=== PATIENT | female | born 1955 | race Caucasian/White ===

== ENCOUNTER 2022-08-25 15:36 | Inpatient (IN) ==
--- NOTE | 2022-08-25 18:26 | EKG ---
Test Reason : chf, anemia Blood Pressure : */* mmHG Vent. Rate : 84 BPM Atrial Rate : 84 BPM P-R Int : 176 ms QRS Dur : 96 ms QT Int : 394 ms P-R-T Axes : 5 -50 34 degrees QTc Int : 465 ms Normal sinus rhythm Left axis deviation Incomplete right bundle branch block Inferior infarct , age undetermined Abnormal ECG No previous ECGs available Confirmed by Jairo Denny ([id number]) on 08/27/2022 8:19:31 AM Referred By: Confirmed By: Jairo Denny
[2022-08-25 19:14] LABS: EOSINOPHILS # (AUTO) 0.1 x10^3/uL (0.0-0.2); LYMPHOCYTES # (AUTO) 0.6 X10^3/uL (1.3-2.9); MONOCYTES # (AUTO) 0.4 x10^3/uL (0.3-0.8); NEUTROPHILS # (AUTO) 3.4 x10^3/uL (2.2-4.8); WHITE BLOOD COUNT 4.5 X10^3/uL (3.6-10.0)
[2022-08-25 19:18] LABS: BASOPHILS # (AUTO) 0.1 X10^3/uL (0.0-0.1); BASOPHILS % (AUTO) 1.2 % (0.2-1.0); EOSINOPHILS % (AUTO) 2.3 % (0.9-2.9); LYMPHOCYTES % (AUTO) 12.6 % (21.0-51.0); MEAN CORPUSCULAR HEMOGLOBIN 23.5 pg (27.0-34.0); MEAN CORPUSCULAR HGB CONC 33.1 g/dL (33.0-35.0); MEAN CORPUSCULAR VOLUME 70.9 fL (80.0-100.0); NEUTROPHILS % (AUTO) 75.9 % (42.0-75.0); RED BLOOD COUNT 2.78 X10^6/uL (3.5-5.4); RED CELL DISTRIBUTION WIDTH 17.7 % (11.6-16.5)
[2022-08-25 19:26] LABS: HEMATOCRIT 19.7 % (36.0-47.0); HEMOGLOBIN 6.5 g/dL (12.0-16.0)
[2022-08-25 19:43] LABS: ANISOCYTOSIS SLIGHT; HYPOCHROMASIA 1+; MICROCYTOSIS SLIGHT; PLATELET MORPHOLOGY COMMENT NORMAL (NORMAL)
[2022-08-25 19:53] LABS: ALBUMIN 3.3 g/dL (3.4-5.0); CALCIUM 8.2 mg/dL (8.5-10.1); CARBON DIOXIDE 27.5 mmol/L (21-32); COR CA(FOR HYPOALB) 8.8 mg/dL (8.5-10.1); CREATININE 2.04 mg/dL (0.55-1.02); FREE T4 (FREE THYROXINE) 0.95 ng/dL (0.76-1.46); MAGNESIUM 1.8 mg/dL (2.0-2.9); TOTAL PROTEIN 6.8 g/dL (6.4-8.2); TSH (3RD GENERATION) 1.737 uIU/mL (0.358-3.74)
[2022-08-25] MEDS ORDERED: LASIX IVP ONE (19:57)
[2022-08-25] MEDS ORDERED: NS 500 ML IV 500 ML IV ONE (20:05)
[2022-08-25] MEDS ORDERED: NORCO 5/325 MG TAB PO PRN (21:03)
[2022-08-25] MEDS: RESTORIL CAP 15 MG PO PRN (23:00)
[2022-08-25] MEDS: NORCO 5/325 MG TAB PO PRN (23:00)
--- NOTE | 2022-08-26 00:43 | EKG ---
Test Reason : chf Blood Pressure : */* mmHG Vent. Rate : 82 BPM Atrial Rate : 81 BPM P-R Int : 162 ms QRS Dur : 88 ms QT Int : 404 ms P-R-T Axes : 15 -48 1 degrees QTc Int : 472 ms Undetermined rhythm Left axis deviation Inferior infarct , age undetermined Abnormal ECG Confirmed by Jairo Denny ([id number]) on 08/27/2022 8:16:51 AM Referred By: Confirmed By: Jairo Denny
[2022-08-26] MEDS ORDERED: NS 250 ML IV 250 ML IV ONE (00:52)
[2022-08-26 01:14] LABS: BILIRUBIN,URINE NEGATIVE (NEGATIVE); BLOOD/HEMOGLOBIN,URINE 5+ (NEGATIVE); GLUCOSE, URINE NEGATIVE (NEGATIVE); KETONES,URINE NEGATIVE (NEGATIVE); LEUKOCYTE ESTERASE ,URINE 3+ (NEGATIVE); NITRITES,URINE NEGATIVE (NEGATIVE); PROTEIN,URINE 3+ (NEGATIVE); UROBILINOGEN,URINE NORMAL (NORMAL)
[2022-08-26 01:31] LABS: APPEARANCE,URINE CLOUDY (CLEAR); BACTERIA,URINE TRACE /HPF (NEGATIVE); COLOR,URINE YELLOW (YELLOW); RBC,URINE TNTC /HPF (0-3); SQUAMOUS EPITHELIAL CELL,UR FEW /HPF (NEGATIVE)
--- NOTE | 2022-08-26 06:07 | EKG ---
Test Reason : chf Blood Pressure : */* mmHG Vent. Rate : 75 BPM Atrial Rate : 75 BPM P-R Int : 160 ms QRS Dur : 98 ms QT Int : 408 ms P-R-T Axes : 2 -42 25 degrees QTc Int : 455 ms Normal sinus rhythm Left axis deviation Nonspecific T wave abnormality Abnormal ECG When compared with ECG of 26-AUG-2022 00:10, (Unconfirmed) Previous ECG has undetermined rhythm, needs review Confirmed by Jairo Denny ([id number]) on 08/27/2022 8:16:41 AM Referred By: Confirmed By: Jairo Denny
[2022-08-26 06:09] LABS: BASOPHILS # (AUTO) 0.1 X10^3/uL (0.0-0.1); BASOPHILS % (AUTO) 1.4 % (0.2-1.0); EOSINOPHILS # (AUTO) 0.2 x10^3/uL (0.0-0.2); EOSINOPHILS % (AUTO) 2.4 % (0.9-2.9); HEMATOCRIT 23.3 % (36.0-47.0); HEMOGLOBIN 7.6 g/dL (12.0-16.0); LYMPHOCYTES # (AUTO) 0.7 X10^3/uL (1.3-2.9); LYMPHOCYTES % (AUTO) 9.8 % (21.0-51.0); MEAN CORPUSCULAR HEMOGLOBIN 23.7 pg (27.0-34.0); MEAN CORPUSCULAR HGB CONC 32.6 g/dL (33.0-35.0); MEAN CORPUSCULAR VOLUME 72.6 fL (80.0-100.0); MEAN PLATELET VOLUME 8.2 fL (7.4-11.0); MONOCYTES # (AUTO) 0.6 x10^3/uL (0.3-0.8); MONOCYTES % (AUTO) 7.9 % (0.0-13.0); NEUTROPHILS # (AUTO) 5.5 x10^3/uL (2.2-4.8); NEUTROPHILS % (AUTO) 78.5 % (42.0-75.0); RED CELL DISTRIBUTION WIDTH 18.6 % (11.6-16.5)
[2022-08-26 06:28] LABS: MICROCYTOSIS SLIGHT; PLATELET MORPHOLOGY COMMENT NORMAL (NORMAL)
[2022-08-26 06:29] LABS: ALBUMIN 3.1 g/dL (3.4-5.0); CALCIUM 8.4 mg/dL (8.5-10.1); CARBON DIOXIDE 29.3 mmol/L (21-32); COR CA(FOR HYPOALB) 9.1 mg/dL (8.5-10.1); CREATININE 1.92 mg/dL (0.55-1.02)
--- NOTE | 2022-08-26 08:14 | RAD ---
HISTORYCongestive heart failure, anemiaSTUDYChest PA and lateralCOMPARISONNoneFINDINGSPatient is status post median sternotomy. The heart is enlarged. No congestive heart failure is noted. No acute alveolar infiltrates or pleural effusions are identified. Bony thorax is unremarkable.IMPRESSIONCardiomegaly without congestive heart failureNo definite infiltratesElectronically signed by: PATTI COHN (Aug 26, 2022 08:12:53)
[2022-08-26] MEDS ORDERED: LASIX IVP SCH (09:00)
[2022-08-26] MEDS ORDERED: NS 100 ML IV 100 ML with VENOFER 400 MG IV NR ×2 (09:00)
[2022-08-26] MEDS ORDERED: NEURONTIN CAP 100 MG PO PRN (09:02)
--- NOTE | 2022-08-26 09:58 | DR.H&P ---
H&P - History & Physical for Day of: H&P Date: 08/25/22 - Chief Complaint Chief Complaint: weakness, sob, leg swelling - History of Present Illness History of Present Illness: PT IS [id number], DIRECT ADMIT FOR EVALUATION AND TREATMENT OF SYMPTOMATIC ANEMIA OF UNKNOWN CAUSE, INCREASED LOWER LEG SWELLING. PT HAS PMH OF STAGE 3 KIDNEY DISEASE, UNDER THE CARE OF DR CASTILLO, CAD, WITH BYPASS IN 2008 AND MULTIPLE STENT PLACEMENT UNDER THE CARE OF DR TURNER. - Past Medical History Past Medical History: Anxiety, Arthritis, CHF, Coronary Artery Disease, Diabetes, Hypertension, Renal Disease - Past Surgical History Surgical History: Angioplasty/Stents, Appendectomy, Cholecystectomy, Hysterectomy, Tonsillectomy - Family History Family Medical History: Diabetes Mellitus, [place], Hypertension - Social History Type of Tobacco Use: None Alcohol Use: None Drug Use: None - Medications Home Medications: albuterol Allergy (Severe, Verified 08/25/22 20:59) ANAPHALEXIS REACTION almond Allergy (Severe, Verified 08/25/22 21:03) ANAPHALEXIS REACTION ketorolac [From Toradol] Allergy (Severe, Verified 08/25/22 21:01) ANAPHALEXIS REACTION peanut Allergy (Severe, Verified 08/25/22 21:03) ANAPHALEXIS REACTION acetaminophen [From Darvocet-N] Allergy (Verified 08/25/22 21:00) nalbuphine [From Nubain] Allergy (Verified 08/25/22 21:02) RASH propoxyphene [From Darvocet-N] Allergy (Verified 08/25/22 21:02) RASH CONTINUE taking the following medications bumetanide 1 mg tablet 1 tab PO BID 08/25/22 [History] ergocalciferol (vitamin D2) 50 mcg (2,000 unit) capsule 2,000 mcg PO WEEKLY 08/25/22 [History] esomeprazole magnesium 40 mg capsule,delayed release 40 mg PO BID 08/25/22 [History] gabapentin 600 mg tablet 600 tab PO BID 08/25/22 [History] insulin detemir U-100 100 unit/mL subcutaneous solution (Levemir U-100 Insulin) ml subcut 08/25/22 [History] losartan 100 mg tablet 1 tab PO QDAY 08/25/22 [History] metformin 500 mg tablet 1 tab PO QDAY 08/25/22 [History] prasugrel 10 mg tablet 1 tab PO QDAY 08/25/22 [History] promethazine 25 mg tablet 1 tab PO BID PRN 08/25/22 [History] tamsulosin 0.4 mg capsule 1 cap PO QDAY 08/25/22 [History] - Review of Systems Constitutional: Weakness Eyes: No Symptoms Reported ENT: No Symptoms Reported Respiratory: Shortness of Breath Cardiovascular: Edema Gastrointestinal: Nausea Musculoskeletal: Leg Pain Skin: No Symptoms Reported Neurological: Weakness - Physical Exam Vital Signs: Temperature 98.1 F Pulse Rate [Right Brachial] 78 Respiratory Rate 20 Blood Pressure [Left Arm] 134/63 O2 Sat by Pulse Oximetry 96 Oriented: Normal Eyes: Normal Ear: Normal Nose: Normal Throat: Normal Respiratory: RLL Diminished, LLL Diminished Cardiovascular: Edema : Normal Auscultation: Bowel Sounds: Normal Palpation: Other Tenderness: Mild Skin: Decreased Turgur Musculoskeletal: Back:Lumbar Psychiatric: Anxiety Mood Description: Anxious Affect: Anxious Speech Pattern: Clear - Assessment/Plan (1) Anemia Status: Acute Plan: ADMIT, ANEMIA PANEL AND OCCULT STOOL. TYPE & SCREEN AND TRANSFUSE PRBC WITH STRICT I&OS. BP CONTROL, HODGE PLACEMENT FOR I&OS. PPI THERAPY, BS CONTROL. CXR ON ADMISSION, SUPPLEMENTAL O2 (2) CHF (congestive heart failure) Status: Acute (3) Renal disease Status: Acute (4) CAD (coronary artery disease) Status: Acute (5) Diabetes Status: Acute - Allergies Allergies/Adverse Reactions: Allergies Allergy/AdvReac Type Severity Reaction Status Date / Time albuterol Allergy Severe ANAPHALEXIS Verified 08/25/22 20:59 REACTION almond Allergy Severe ANAPHALEXIS Verified 08/25/22 21:03 REACTION ketorolac [From Toradol] Allergy Severe ANAPHALEXIS Verified 08/25/22 21:01 REACTION peanut Allergy Severe ANAPHALEXIS Verified 08/25/22 21:03 REACTION acetaminophen Allergy Verified 08/25/22 21:00 [From Darvocet-N] nalbuphine [From Nubain] Allergy RASH Verified 08/25/22 21:02 propoxyphene Allergy RASH Verified 08/25/22 21:02 [From Darvocet-N]
[2022-08-26] MEDS: PROTONIX INJ 40 MG VIAL IVP SCH ×2 (10:12→21:11)
[2022-08-26] MEDS: HEMOCYTE-PLUS PO SCH (10:13)
[2022-08-26 10:32] VITALS: BMI 35.3
[2022-08-26 10:54] LABS: ABG BASE EXCESS 4.8 mmol/L (-2.0-2.0)
[2022-08-26 10:55] LABS: ABG ALLEN TEST POS; ABG HCO3 30.4 mmol/L (22-26)
[2022-08-26] MEDS ORDERED: ZOFRAN INJ 4 MG VIAL ONE (12:21)
[2022-08-26] MEDS: ZOFRAN INJ 4 MG VIAL IVP PRN ×2 (12:45→21:08)
--- NOTE | 2022-08-26 14:21 | CT ---
CT abdomen and pelvis without contrastIndication: Abdominal distensionComparison: June 29, 2022 CT from outside facility. MR from April 22, 2022TECHNIQUEHelical images through the abdomen and pelvis without contrast. Coronal and sagittal reformats provided.FINDINGSLimited images through the lower chest shows cardiomegaly with sternotomy change and coronary calcifications. Dependent atelectasis noted, with developing pneumonia in the right lower lung not entirely excluded. Review of bone windows demonstrates bilateral rib fractures, similar to the prior. Spine and pelvis degenerative changes are noted.Abdomen: Extensive abdominal wall scarring and soft tissue stranding with anasarca and dependent fluid posteriorly noted. Correlate for postsurgical change and cardiac dysfunction.The liver is cirrhotic in configuration, with hypodense lesion in the right lobe of the liver on axial image 13 unchanged from prior axial image 17.Post cholecystectomy change noted.Left adrenal lesion is unchanged from the prior, potentially an adenoma but indeterminate on this study.Aortic calcifications noted with stent in left renal arteryPancreas shows no acute abnormality, within limits of a noncontrast study. Lack of contrast limits sensitivity. Spleen is prominent in size with prominent portal vein suggesting portal venous hypertension.Ventral fat containing hernia seen on axial image 13, just below the xiphoid, similar to the prior.No acute colonic abnormality seen. Moderate stool seen in the colon.Kidneys show mild atrophic change without hydronephrosis.Pelvis: Urinary bladder contains gas and a King catheter. The rectum is normal. Uterus is absent. No adnexal region lesions seen.Left adrenal lesionIMPRESSION1. Hepatic cirrhosis and portal venous hypertension with splenomegaly and hepatic lesion again noted. To exclude hepatocellular carcinoma, multiphasic postcontrast imaging or MR imaging will be needed.2. Cardiomegaly with dependent lung changes and body wall anasarca suggesting worsening CHF3. Extensive vascular calcifications.4. Increased dependent change in the right lower lung noted. Correlate clinically for developing pneumonia5. Bilateral rib fractures, spine and pelvis DJD and other findings as above. Thick-walled urinary bladder with gas collapsed on a King catheter. Correlate clinically for signs of cystitis.Electronically signed by: TANISHA TURNER (Aug 26, 2022 14:20:00)
--- NOTE | 2022-08-26 15:03 | CT ---
HISTORYLETHARGIC.brHIT LT TEMPLESTUDYBRAIN W/O CONCOMPARISONNoneTECHNIQUEMult iple axial images of the head without contrast. Dose reduction techniques including Automated Exposure Control (AEC) and adjustment of mA and kV were utilized.Contrast: NoneFINDINGSBRAIN PARENCHYMA: No acute hemorrhage, infarct, mass, or mass effect.Leyva-white differentiation is maintained.Scattered white matter chronic small vessel ischemic changes.VENTRICLES/EXTRA-AXIAL SPACES: Unremarkable size and configuration. No hydrocephalus or extra-axial fluid collections. Mild left soft tissue swelling adjacent to the left lateral orbital wall. Old-appearing infarct in the left occipital lobe.EXTRACRANIAL STRUCTURES:Unremarkable bones and soft tissues. Visualized paranasal sinuses and mastoids are clear.IMPRESSIONNo acute intracranial findings with atrophy and chronic small vessel ischemic change and old appearing infarct in the left occipital lobe.Electronically signed by: Bright Robert (Aug 26, 2022 15:03:07)
--- NOTE | 2022-08-26 15:28 | RAD ---
EXAM: CHEST X-RAYHISTORY: Congestive heart failure.TECHNIQUE: AP chest x-ray dated August 26 2022 at 12:41 PM.COMPARISON: CXR dated August 25, 2022.FINDINGS:The patient is status post sternotomy, presumably for CABG. There is evidence for cardiomegaly. The pulmonary vascularity and interstitial markings are diffusely prominent, consistent with mild CHF or volume overload in the appropriate clinical setting; differential diagnosis includes (but is not limited to) mild bronchitis and interstitial pneumonia in the appropriate clinical setting.There is no gross focal lung consolidation, pleural effusion, or pneumothorax seen. Status post anterior cervical spine fusion with metallic plate and screws in situ. The visualized bony structures are otherwise within normal limits.IMPRESSION:1. Findings consistent with mild CHF or volume overload in the appropriate clinical setting (with interval progression of bronchopulmonary markings compared with the previous exam); DDX includes (but is not limited to) mild bronchitis and interstitial pneumonia in the appropriate clinical setting.2. Recommend clinical correlation and appropriate follow-up CXR evaluation to ensure interval clearance as clinically warranted.3. Consider follow-up noncontrast chest CT for further characterization as clinically warranted.Electronically signed by: Ra Muñoz (Aug 26, 2022 15:27:09)
[2022-08-26] MEDS: NORCO 5/325 MG TAB PO PRN (21:07)
[2022-08-26] MEDS: COLACE CAP 100 MG PO SCH (21:07)
[2022-08-26] MEDS: RESTORIL CAP 15 MG PO PRN (23:54)
[2022-08-27 05:58] LABS: BASOPHILS # (AUTO) 0.1 X10^3/uL (0.0-0.1); EOSINOPHILS % (AUTO) 0.1 % (0.9-2.9); HEMATOCRIT 24.5 % (36.0-47.0); LYMPHOCYTES # (AUTO) 0.4 X10^3/uL (1.3-2.9); LYMPHOCYTES % (AUTO) 5.4 % (21.0-51.0); MEAN CORPUSCULAR HEMOGLOBIN 23.7 pg (27.0-34.0); MEAN CORPUSCULAR HGB CONC 32.4 g/dL (33.0-35.0); MEAN CORPUSCULAR VOLUME 72.9 fL (80.0-100.0); MEAN PLATELET VOLUME 8.5 fL (7.4-11.0); MONOCYTES # (AUTO) 0.4 x10^3/uL (0.3-0.8); MONOCYTES % (AUTO) 5.3 % (0.0-13.0); NEUTROPHILS % (AUTO) 88.2 % (42.0-75.0); RED BLOOD COUNT 3.36 X10^6/uL (3.5-5.4); RED CELL DISTRIBUTION WIDTH 18.7 % (11.6-16.5)
[2022-08-27 06:07] LABS: ALANINE AMINOTRANSFERASE 16 Units/L (12-78); ALBUMIN 3.5 g/dL (3.4-5.0); ALKALINE PHOSPHATASE 89 Units/L (46-116); ASPARTATE AMINO TRANSFERASE 25 Units/L (15-37); BLOOD UREA NITROGEN 41 mg/dL (7-18); CALCIUM 8.6 mg/dL (8.5-10.1); CARBON DIOXIDE 29.1 mmol/L (21-32); CHLORIDE 89 mmol/L (98-107); COR NA(FOR HYPERGLY) 128 mmol/L (136-145); SODIUM 126 mmol/L (136-145); TOTAL PROTEIN 7.3 g/dL (6.4-8.2); eGFR NON BLACK RACES 23 (>60)
[2022-08-27 06:26] LABS: PLATELET MORPHOLOGY COMMENT NORMAL (NORMAL)
[2022-08-27 06:27] LABS: HYPOCHROMASIA 1+
[2022-08-27 06:31] LABS: ANISOCYTOSIS SLIGHT; MICROCYTOSIS SLIGHT
[2022-08-27] MEDS: HEMOCYTE-PLUS PO SCH (08:49)
[2022-08-27] MEDS: ZOFRAN INJ 4 MG VIAL IVP PRN ×2 (08:53→20:42)
[2022-08-27] MEDS: NORCO 5/325 MG TAB PO PRN ×2 (08:53→21:32)
[2022-08-27] MEDS ORDERED: LASIX IVP SCH (09:00)
[2022-08-27] MEDS: PROTONIX INJ 40 MG VIAL IVP SCH ×2 (09:09→21:34)
[2022-08-27] MEDS: ROCEPHIN VIAL 1 GRAM 1 G in NS 100 ML IV 100 ML IV SCH (11:36)
--- NOTE | 2022-08-27 12:25 | PCM.PROG ---
Progress Note Progress Note for Day of Date of Exam: 08/27/22 Subjective Subjective: Patient seen at bedside, no acute events overnight. She is currently being treated for anemia and CHF exacerbation. She reports dyspnea on exertion. She did receive 1 units PRBCs yesterday. CTAP showed hepatic cirrhosis, MRI pending. CXR consistent with mild CHF and volume overload. Patient's leg edema has improved. Labs/imaging Hgb 8 Plt 140 K 5.9 BUN/Cr 41/2.30 Urine Cx: Gram + cocci EF 34% Plan: Will start Rocephin for UTI, follow final urine Cx. Daily weight and strict I&Os. Follow MRI-abdomen. Continue home medications. Due to worsening renal function, will hold off lasix for today. Monitor AM labs/imaging. Past Medical Family Social History Allergies: Allergies albuterol Allergy (Severe, Verified 08/25/22 20:59) ANAPHALEXIS REACTION almond Allergy (Severe, Verified 08/25/22 21:03) ANAPHALEXIS REACTION ketorolac [From Toradol] Allergy (Severe, Verified 08/25/22 21:01) ANAPHALEXIS REACTION peanut Allergy (Severe, Verified 08/25/22 21:03) ANAPHALEXIS REACTION acetaminophen [From Darvocet-N] Allergy (Verified 08/25/22 21:00) nalbuphine [From Nubain] Allergy (Verified 08/25/22 21:02) RASH propoxyphene [From Darvocet-N] Allergy (Verified 08/25/22 21:02) RASH Vital Signs and I&O's Vital Signs: Temperature 98.3 F Pulse Rate [Right Brachial] 81 Respiratory Rate 22 Blood Pressure [Left Radial 159/72 Artery] Blood Pressure [Left Arm] 164/75 O2 Sat by Pulse Oximetry 100 Intake and Output: Intake & Output 08/24/22 08/25/22 08/26/22 08/27/22 23:59 23:59 23:59 23:59 Intake Total 960 / 960 180 / 180 Output Total 3200 / 3200 650 / 650 Balance -2240 / -2240 -470 / -470 Physical Exam Oriented: Normal Eyes: Normal Ear: Normal Nose: Normal Throat: Normal Respiratory: Generalized and Rhonchi Cardiovascular: Edema (LE edema improved ) Auscultation: Bowel Sounds: Normal Tenderness: Normal Skin: Decreased Turgur Musculoskeletal: Back:Lumbar Psychiatric: Normal Mood Description: Calm Affect: Normal Speech Pattern: Appropriate Laboratory and Diagnostics Result Diagrams: 08/27/22 05:37 08/27/22 05:37 Labs: 08/26/22 00:50 Urine,Clean Catch Urine Culture - Preliminary Laboratory WBC 8.0 X10^3/uL (3.6-10.0) 08/27/22 05:37 RBC 3.36 X10^6/uL (3.5-5.4) L 08/27/22 05:37 Hgb 8.0 g/dL (12.0-16.0) L 08/27/22 05:37 Hct 24.5 % (36.0-47.0) L 08/27/22 05:37 MCV 72.9 fL (80.0-100.0) L 08/27/22 05:37 MCH 23.7 pg (27.0-34.0) L 08/27/22 05:37 MCHC 32.4 g/dL (33.0-35.0) L 08/27/22 05:37 RDW 18.7 % (11.6-16.5) H 08/27/22 05:37 Plt Count 140 X10^3/uL (150.0-450.0) L 08/27/22 05:37 Plt Count Comment Decreased (ADEQUATE) A 08/27/22 05:37 MPV 8.5 fL (7.4-11.0) 08/27/22 05:37 Neut % (Auto) 88.2 % (42.0-75.0) H 08/27/22 05:37 Lymph % (Auto) 5.4 % (21.0-51.0) L 08/27/22 05:37 [place] % (Auto) 5.3 % (0.0-13.0) 08/27/22 05:37 Eos % (Auto) 0.1 % (0.9-2.9) L 08/27/22 05:37 Baso % (Auto) 1.0 % (0.2-1.0) 08/27/22 05:37 Neut # (Auto) 7.0 x10^3/uL (2.2-4.8) H 08/27/22 05:37 Lymph # (Auto) 0.4 X10^3/uL (1.3-2.9) L 08/27/22 05:37 [place] # (Auto) 0.4 x10^3/uL (0.3-0.8) 08/27/22 05:37 Eos # (Auto) 0.0 x10^3/uL (0.0-0.2) 08/27/22 05:37 Baso # (Auto) 0.1 X10^3/uL (0.0-0.1) 08/27/22 05:37 Absolute Nucleated RBC 0.0 /100WBC 08/27/22 05:37 Plt Morphology Comment Normal (NORMAL) 08/27/22 05:37 RBC Morphology Abnormal (NORMAL) A 08/27/22 05:37 Hypochromasia 1+ A 08/27/22 05:37 Anisocytosis Slight A 08/27/22 05:37 Microcytosis Slight A 08/27/22 05:37 Sample Site Lra 08/26/22 10:52 ABG pH 7.410 (7.35-7.45) 08/26/22 10:52 ABG pCO2 48.0 mmHg (35.0-45.0) H 08/26/22 10:52 ABG pO2 125.0 mmHg (80.0-100.0) H 08/26/22 10:52 ABG HCO3 30.4 mmol/L (22-26) H* 08/26/22 10:52 ABG O2 Saturation 99.0 % (90-100) 08/26/22 10:52 ABG Base Excess 4.8 mmol/L (-2.0-2.0) H 08/26/22 10:52 Ayo Test Pos 08/26/22 10:52 A-a Gradient -35.0 mmHg 08/26/22 10:52 FiO2 21.0 08/26/22 10:52 Blood Gas Comments Pt virgie well eb 08/26/22 10:52 Sodium 126 mmol/L (136-145) L 08/27/22 05:37 Corrected Sodium 128 mmol/L (136-145) L 08/27/22 05:37 Potassium 5.9 mmol/L (3.5-5.1) H 08/27/22 05:37 Chloride 89 mmol/L (98-107) L 08/27/22 05:37 Carbon Dioxide 29.1 mmol/L (21-32) 08/27/22 05:37 BUN 41 mg/dL (7-18) H 08/27/22 05:37 Creatinine 2.30 mg/dL (0.55-1.02) H 08/27/22 05:37 Est GFR (MDRD) Af Amer 27 (>60) L 08/27/22 05:37 Est GFR (MDRD) Non-Af 23 (>60) L 08/27/22 05:37 Glucose 203 mg/dL (65-99) H 08/27/22 05:37 POC Glucose (mg/dL) 197 mg/dL (65-99) H 08/26/22 20:21 Calcium 8.6 mg/dL (8.5-10.1) 08/27/22 05:37 Corrected Calcium TNP 08/27/22 05:37 Magnesium 1.8 mg/dL (2.0-2.9) L 08/25/22 19:08 Iron 16 ug/dL (50-175) L 08/25/22 19:08 Ferritin 49 ng/mL (8-252) 08/25/22 19:08 Total Bilirubin 0.50 mg/dL (0.2-1.0) 08/27/22 05:37 AST 25 Units/L (15-37) 08/27/22 05:37 ALT 16 Units/L (12-78) 08/27/22 05:37 Alkaline Phosphatase 89 Units/L (46-116) 08/27/22 05:37 Creatine Kinase 177 Units/L (26-192) 08/25/22 19:08 Troponin I High Sens 26.8 ng/L (4.0-60.0) 08/26/22 06:04 B-Natriuretic Peptide 697 pg/mL (0-79) H* 08/25/22 19:08 Total Protein 7.3 g/dL (6.4-8.2) 08/27/22 05:37 Albumin 3.5 g/dL (3.4-5.0) 08/27/22 05:37 Globulin 3.8 g/dL (2.5-4.5) 08/27/22 05:37 Albumin/Globulin Ratio 0.9 Ratio (1.1-2.1) L 08/27/22 05:37 Vitamin B12 472 pg/mL (193-986) 08/25/22 19:08 Folate 13.5 ng/mL (>8.6) 08/25/22 19:08 Free T4 0.95 ng/dL (0.76-1.46) 08/25/22 19:08 TSH 3rd Generation 1.737 uIU/mL (0.358-3.74) 08/25/22 19:08 Specimen Type Catherized urine 08/26/22 00:50 Urine Color Yellow (YELLOW) 08/26/22 00:50 Urine Appearance Cloudy (CLEAR) 08/26/22 00:50 Urine pH 6.0 (5.0 - 8.0) 08/26/22 00:50 Ur Specific [place] 1.015 (1.000-1.030) 08/26/22 00:50 Urine Protein 3+ (NEGATIVE) 08/26/22 00:50 Urine Glucose (UA) Negative (NEGATIVE) 08/26/22 00:50 Urine Ketones Negative (NEGATIVE) 08/26/22 00:50 Urine Blood 5+ (NEGATIVE) 08/26/22 00:50 Urine Nitrite Negative (NEGATIVE) 08/26/22 00:50 Urine Bilirubin Negative (NEGATIVE) 08/26/22 00:50 Urine Urobilinogen Normal (NORMAL) 08/26/22 00:50 Ur Leukocyte Esterase 3+ (NEGATIVE) 08/26/22 00:50 Urine RBC Tntc /HPF (0-3) A 08/26/22 00:50 Urine WBC 5-10 /HPF (0-5) A 08/26/22 00:50 Ur Squamous Epith Cells Few /HPF (NEGATIVE) 08/26/22 00:50 Urine Bacteria Trace /HPF (NEGATIVE) 08/26/22 00:50 Ur Culture Indicated? Yes/culture set up 08/26/22 00:50 Blood Type AB POSITIVE 08/25/22 20:40 Antibody Screen Negative 08/25/22 20:40 Crossmatch See Detail 08/25/22 20:40 Plan (1) Anemia: Status: Acute (2) CHF exacerbation: Status: Acute (3) UTI (urinary tract infection): Status: Acute (4) Cirrhosis: Status: Acute (5) Cardiomyopathy: Status: Acute (6) Renal disease: Status: Acute (7) CAD (coronary artery disease): Status: Acute (8) Diabetes: Status: Acute
[2022-08-27] MEDS: COLACE CAP 100 MG PO SCH (21:31)
[2022-08-27] MEDS: RESTORIL CAP 15 MG PO PRN (21:32)
[2022-08-28 05:52] LABS: BASOPHILS # (AUTO) 0.1 X10^3/uL (0.0-0.1); BASOPHILS % (AUTO) 1.2 % (0.2-1.0); EOSINOPHILS # (AUTO) 0.1 x10^3/uL (0.0-0.2); EOSINOPHILS % (AUTO) 1.6 % (0.9-2.9); HEMATOCRIT 22.7 % (36.0-47.0); HEMOGLOBIN 7.4 g/dL (12.0-16.0); LYMPHOCYTES # (AUTO) 0.6 X10^3/uL (1.3-2.9); LYMPHOCYTES % (AUTO) 9.7 % (21.0-51.0); MEAN CORPUSCULAR HEMOGLOBIN 23.8 pg (27.0-34.0); MEAN CORPUSCULAR HGB CONC 32.8 g/dL (33.0-35.0); MEAN CORPUSCULAR VOLUME 72.6 fL (80.0-100.0); MEAN PLATELET VOLUME 8.5 fL (7.4-11.0); MONOCYTES # (AUTO) 0.5 x10^3/uL (0.3-0.8); MONOCYTES % (AUTO) 8.4 % (0.0-13.0); NEUTROPHILS # (AUTO) 4.8 x10^3/uL (2.2-4.8); NEUTROPHILS % (AUTO) 79.1 % (42.0-75.0); RED BLOOD COUNT 3.12 X10^6/uL (3.5-5.4); RED CELL DISTRIBUTION WIDTH 18.7 % (11.6-16.5); WHITE BLOOD COUNT 6.1 X10^3/uL (3.6-10.0)
[2022-08-28 06:04] LABS: ALBUMIN 3.2 g/dL (3.4-5.0); CALCIUM 8.6 mg/dL (8.5-10.1); CARBON DIOXIDE 29.1 mmol/L (21-32); COR CA(FOR HYPOALB) 9.2 mg/dL (8.5-10.1); CREATININE 2.31 mg/dL (0.55-1.02); TOTAL PROTEIN 7.2 g/dL (6.4-8.2)
[2022-08-28 06:46] LABS: PLATELET MORPHOLOGY COMMENT NORMAL (NORMAL)
[2022-08-28 06:47] LABS: ANISOCYTOSIS SLIGHT; HYPOCHROMASIA 1+; MICROCYTOSIS SLIGHT
[2022-08-28] MEDS: ROCEPHIN VIAL 1 GRAM 1 G in NS 100 ML IV 100 ML IV SCH (09:12)
[2022-08-28] MEDS: HEMOCYTE-PLUS PO SCH (09:13)
[2022-08-28] MEDS: PROTONIX INJ 40 MG VIAL IVP SCH ×2 (09:13→21:25)
[2022-08-28] MEDS ORDERED: NovoLIN R (or HumuLIN R) SC PRN (10:18)
[2022-08-28] MEDS ORDERED: PATIENT'S HOME MEDICATION (Prasugrel 10 mg tablet) PO SCH (10:30)
[2022-08-28] MEDS ORDERED: LASIX IVP SCH (11:00)
[2022-08-28] MEDS ORDERED: MIRALAX POWDER (1 DOSE 17 G) PO SCH (11:50)
[2022-08-28] MEDS ORDERED: NS 500 ML IV 500 ML IV ONE (11:51)
--- NOTE | 2022-08-28 11:53 | PCM.PROG ---
Progress Note Progress Note for Day of Date of Exam: 08/28/22 Subjective Subjective: Patient seen at bedside, no acute events overnight. She is currently being treated for anemia and CHF exacerbation. She reports dyspnea on exertion. CTAP showed hepatic cirrhosis, MRI pending. CXR consistent with mild CHF and volume overload. Patient's leg edema has improved. Labs/imaging Hgb 7.4 Plt 126 K 5.4 BUN/Cr 44/2.31 Urine Cx: Enterococcus Faecalis EF 34% Plan: DC Rocephin, switch to Ampicillin. Daily weight and strict I&Os. Follow MRI-abdomen. Resume home medications. 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 Transfuse 1 unit PRBC. Monitor Hgb. Decrease lasix to 20 mg IV daily. Monitor AM labs/imaging. Past Medical Family Social History Allergies: Allergies albuterol Allergy (Severe, Verified 08/25/22 20:59) ANAPHALEXIS REACTION almond Allergy (Severe, Verified 08/25/22 21:03) ANAPHALEXIS REACTION ketorolac [From Toradol] Allergy (Severe, Verified 08/25/22 21:01) ANAPHALEXIS REACTION peanut Allergy (Severe, Verified 08/25/22 21:03) ANAPHALEXIS REACTION acetaminophen [From Darvocet-N] Allergy (Verified 08/25/22 21:00) nalbuphine [From Nubain] Allergy (Verified 08/25/22 21:02) RASH propoxyphene [From Darvocet-N] Allergy (Verified 08/25/22 21:02) RASH Vital Signs and I&O's Vital Signs: Temperature 97.9 F Pulse Rate [Right Brachial] 76 Respiratory Rate 20 Blood Pressure [Left Radial 166/77 Artery] Blood Pressure [Left Arm] 164/75 O2 Sat by Pulse Oximetry 99 Intake and Output: Intake & Output 08/25/22 08/26/22 08/27/22 08/28/22 23:59 23:59 23:59 23:59 Intake Total 960 / 960 940 / 940 200 / 200 Output Total 3200 / 3200 950 / 950 Balance -2240 / -2240 -10 / -10 200 / 200 Physical Exam Oriented: Normal Eyes: Normal Ear: Normal Nose: Normal Throat: Normal Respiratory: Generalized and Rhonchi Cardiovascular: Edema (LE edema improved ) Auscultation: Bowel Sounds: Normal Tenderness: Normal Skin: Decreased Turgur Musculoskeletal: Back:Lumbar Psychiatric: Normal Mood Description: Calm Affect: Normal Speech Pattern: Clear and Appropriate Laboratory and Diagnostics Result Diagrams: 08/28/22 05:21 08/28/22 05:21 Labs: 08/26/22 00:50 Urine,Clean Catch Urine Culture - Final Enterococcus Faecalis Laboratory WBC 6.1 X10^3/uL (3.6-10.0) 08/28/22 05:21 RBC 3.12 X10^6/uL (3.5-5.4) L 08/28/22 05:21 Hgb 7.4 g/dL (12.0-16.0) L 08/28/22 05:21 Hct 22.7 % (36.0-47.0) L 08/28/22 05:21 MCV 72.6 fL (80.0-100.0) L 08/28/22 05:21 MCH 23.8 pg (27.0-34.0) L 08/28/22 05:21 MCHC 32.8 g/dL (33.0-35.0) L 08/28/22 05:21 RDW 18.7 % (11.6-16.5) H 08/28/22 05:21 Plt Count 126 X10^3/uL (150.0-450.0) L 08/28/22 05:21 Plt Count Comment Decreased (ADEQUATE) A 08/28/22 05:21 MPV 8.5 fL (7.4-11.0) 08/28/22 05:21 Neut % (Auto) 79.1 % (42.0-75.0) H 08/28/22 05:21 Lymph % (Auto) 9.7 % (21.0-51.0) L 08/28/22 05:21 [place] % (Auto) 8.4 % (0.0-13.0) 08/28/22 05:21 Eos % (Auto) 1.6 % (0.9-2.9) 08/28/22 05:21 Baso % (Auto) 1.2 % (0.2-1.0) H 08/28/22 05:21 Neut # (Auto) 4.8 x10^3/uL (2.2-4.8) 08/28/22 05:21 Lymph # (Auto) 0.6 X10^3/uL (1.3-2.9) L 08/28/22 05:21 [place] # (Auto) 0.5 x10^3/uL (0.3-0.8) 08/28/22 05:21 Eos # (Auto) 0.1 x10^3/uL (0.0-0.2) 08/28/22 05:21 Baso # (Auto) 0.1 X10^3/uL (0.0-0.1) 08/28/22 05:21 Absolute Nucleated RBC 0.0 /100WBC 08/28/22 05:21 Plt Morphology Comment Normal (NORMAL) 08/28/22 05:21 RBC Morphology Abnormal (NORMAL) A 08/28/22 05:21 Hypochromasia 1+ A 08/28/22 05:21 Anisocytosis Slight A 08/28/22 05:21 Microcytosis Slight A 08/28/22 05:21 Sample Site Lra 08/26/22 10:52 ABG pH 7.410 (7.35-7.45) 08/26/22 10:52 ABG pCO2 48.0 mmHg (35.0-45.0) H 08/26/22 10:52 ABG pO2 125.0 mmHg (80.0-100.0) H 08/26/22 10:52 ABG HCO3 30.4 mmol/L (22-26) H* 08/26/22 10:52 ABG O2 Saturation 99.0 % (90-100) 08/26/22 10:52 ABG Base Excess 4.8 mmol/L (-2.0-2.0) H 08/26/22 10:52 Ayo Test Pos 08/26/22 10:52 A-a Gradient -35.0 mmHg 08/26/22 10:52 FiO2 21.0 08/26/22 10:52 Blood Gas Comments Pt virgie well eb 08/26/22 10:52 Sodium 127 mmol/L (136-145) L 08/28/22 05:21 Corrected Sodium 130 mmol/L (136-145) L 08/28/22 05:21 Potassium 5.4 mmol/L (3.5-5.1) H 08/28/22 05:21 Chloride 91 mmol/L (98-107) L 08/28/22 05:21 Carbon Dioxide 29.1 mmol/L (21-32) 08/28/22 05:21 BUN 44 mg/dL (7-18) H 08/28/22 05:21 Creatinine 2.31 mg/dL (0.55-1.02) H 08/28/22 05:21 Est GFR (MDRD) Af Amer 27 (>60) L 08/28/22 05:21 Est GFR (MDRD) Non-Af 22 (>60) L 08/28/22 05:21 Glucose 205 mg/dL (65-99) H 08/28/22 05:21 POC Glucose (mg/dL) 180 mg/dL (65-99) H 08/28/22 06:06 Calcium 8.6 mg/dL (8.5-10.1) 08/28/22 05:21 Corrected Calcium 9.2 mg/dL (8.5-10.1) 08/28/22 05:21 Magnesium 2.0 mg/dL (2.0-2.9) 08/28/22 05:21 Iron 16 ug/dL (50-175) L 08/25/22 19:08 Ferritin 49 ng/mL (8-252) 08/25/22 19:08 Total Bilirubin 0.30 mg/dL (0.2-1.0) 08/28/22 05:21 AST 22 Units/L (15-37) 08/28/22 05:21 ALT 13 Units/L (12-78) 08/28/22 05:21 Alkaline Phosphatase 83 Units/L (46-116) 08/28/22 05:21 Creatine Kinase 177 Units/L (26-192) 08/25/22 19:08 Troponin I High Sens 26.8 ng/L (4.0-60.0) 08/26/22 06:04 B-Natriuretic Peptide 697 pg/mL (0-79) H* 08/25/22 19:08 Total Protein 7.2 g/dL (6.4-8.2) 08/28/22 05:21 Albumin 3.2 g/dL (3.4-5.0) L 08/28/22 05:21 Globulin 4.0 g/dL (2.5-4.5) 08/28/22 05:21 Albumin/Globulin Ratio 0.8 Ratio (1.1-2.1) L 08/28/22 05:21 Vitamin B12 472 pg/mL (193-986) 08/25/22 19:08 Folate 13.5 ng/mL (>8.6) 08/25/22 19:08 Free T4 0.95 ng/dL (0.76-1.46) 08/25/22 19:08 TSH 3rd Generation 1.737 uIU/mL (0.358-3.74) 08/25/22 19:08 Specimen Type Catherized urine 08/26/22 00:50 Urine Color Yellow (YELLOW) 08/26/22 00:50 Urine Appearance Cloudy (CLEAR) 08/26/22 00:50 Urine pH 6.0 (5.0 - 8.0) 08/26/22 00:50 Ur Specific [place] 1.015 (1.000-1.030) 08/26/22 00:50 Urine Protein 3+ (NEGATIVE) 08/26/22 00:50 Urine Glucose (UA) Negative (NEGATIVE) 08/26/22 00:50 Urine Ketones Negative (NEGATIVE) 08/26/22 00:50 Urine Blood 5+ (NEGATIVE) 08/26/22 00:50 Urine Nitrite Negative (NEGATIVE) 08/26/22 00:50 Urine Bilirubin Negative (NEGATIVE) 08/26/22 00:50 Urine Urobilinogen Normal (NORMAL) 08/26/22 00:50 Ur Leukocyte Esterase 3+ (NEGATIVE) 08/26/22 00:50 Urine RBC Tntc /HPF (0-3) A 08/26/22 00:50 Urine WBC 5-10 /HPF (0-5) A 08/26/22 00:50 Ur Squamous Epith Cells Few /HPF (NEGATIVE) 08/26/22 00:50 Urine Bacteria Trace /HPF (NEGATIVE) 08/26/22 00:50 Ur Culture Indicated? Yes/culture set up 08/26/22 00:50 Stl Occult Blood (IFOB) Negative (NEGATIVE) 08/27/22 20:50 Blood Type AB POSITIVE 08/25/22 20:40 Antibody Screen Negative 08/25/22 20:40 Crossmatch See Detail 08/25/22 20:40 Plan (1) Anemia: Status: Acute (2) CHF exacerbation: Status: Acute (3) UTI (urinary tract infection): Status: Acute (4) Cirrhosis: Status: Acute (5) Cardiomyopathy: Status: Acute (6) Renal disease: Status: Acute (7) CAD (coronary artery disease): Status: Acute (8) Diabetes: Status: Acute
--- NOTE | 2022-08-28 15:59 | DR.UPDATE ---
H&P Update H&P Reviewed: Yes Any changes to H&P?: No Patient was examined?: Yes Procedures (ALL) - Central Line Placement PCM.CLCO: written consent Time out performed: Yes Patient placed pm monitor/pulse ox: Yes MD prep: mask, gown, gloves, other Centrial line prep: chlorhexidine scrub, sterile drapes applied Local anesthsia used: lidocane 1% Ultrasound used for placement: Yes (right ij id'd via u/s and cannulation visualized) Central line lumen ininserted: triple Post procedure: sutured in place, good blood return, all ports aspirated, flushed,capped, sterile dressing applied Post procedure xray: tip oc catheter in good position (appears svc on cxr), no pneumothorax seen Patient tolerated procedure: Yes Complications: none
[2022-08-28] MEDS: NS IV SCH (16:13)
[2022-08-28] MEDS: AMPICILLIN IV SCH (16:13)
[2022-08-28] MEDS: NEURONTIN TAB 600 MG PO SCH ×2 (16:14→21:23)
[2022-08-28] MEDS: MIRALAX POWDER (1 DOSE 17 G) PO SCH (16:48)
--- NOTE | 2022-08-28 17:27 | RAD ---
EXAM: CHEST X-RAYHISTORY: Central line placement verificationTECHNIQUE: AP CXR dated August 28, 2022 at 3:48 PM..COMPARISON: CXR dated August 26, 2022.FINDINGS:There is a new right internal jugular central venous catheter with distal tip in distal SVC (adequate position). Recommend careful clinical correlation to ensure venous blood return.There is evidence for cardiomegaly. The pulmonary vascularity and interstitial markings are diffusely prominent, consistent with mild CHF or volume overload in the appropriate clinical setting; differential diagnosis includes (but is not limited to) mild bronchitis and interstitial pneumonia in the appropriate clinical setting.There is no gross focal lung consolidation, pleural effusion, or pneumothorax seen. The visualized bony structures are within normal limits.IMPRESSION:1. New right internal jugular central venous catheter with distal tip in distal SVC (adequate position). Recommend careful clinical correlation to ensure venous blood return.2. Findings consistent with mild CHF or volume overload in the appropriate clinical setting (stable); DDX includes (but is not limited to) mild bronchitis and interstitial pneumonia in the appropriate clinical setting.2. Recommend clinical correlation and appropriate follow-up CXR evaluation to ensure interval clearance as clinically warranted.Electronically signed by: Ra Muñoz (Aug 28, 2022 17:26:11)
[2022-08-28] MEDS ORDERED: LEVEMIR SC SCH (21:00)
[2022-08-28 21:17] LABS: HEMATOCRIT 24.7 % (36.0-47.0); HEMOGLOBIN 8.2 g/dL (12.0-16.0)
[2022-08-28] MEDS: COLACE CAP 100 MG PO SCH (21:23)
[2022-08-28] MEDS: RESTORIL CAP 15 MG PO PRN (21:25)
[2022-08-28] MEDS: LEVEMIR SC SCH (21:26)
[2022-08-28] MEDS: SNACK - Diabetic Appropriate PO SCH (21:46)
[2022-08-28] MEDS: NORCO 5/325 MG TAB PO PRN (22:27)
[2022-08-28] MEDS: ZOFRAN INJ 4 MG VIAL IVP PRN (22:27)
[2022-08-29] MEDS: AMPICILLIN IV SCH ×2 (00:18→12:38)
[2022-08-29] MEDS: NS IV SCH ×2 (00:18→12:38)
[2022-08-29] MEDS: ROBITUSSIN DM PO PRN ×2 (01:31→22:00)
[2022-08-29 05:01] LABS: BASOPHILS # (AUTO) 0.1 X10^3/uL (0.0-0.1); BASOPHILS % (AUTO) 1.3 % (0.2-1.0); EOSINOPHILS # (AUTO) 0.2 x10^3/uL (0.0-0.2); EOSINOPHILS % (AUTO) 3.4 % (0.9-2.9); HEMOGLOBIN 8.2 g/dL (12.0-16.0); LYMPHOCYTES # (AUTO) 0.8 X10^3/uL (1.3-2.9); LYMPHOCYTES % (AUTO) 15.1 % (21.0-51.0); MEAN CORPUSCULAR HEMOGLOBIN 24.6 pg (27.0-34.0); MEAN CORPUSCULAR HGB CONC 32.9 g/dL (33.0-35.0); MEAN CORPUSCULAR VOLUME 74.7 fL (80.0-100.0); MEAN PLATELET VOLUME 8.7 fL (7.4-11.0); MONOCYTES # (AUTO) 0.5 x10^3/uL (0.3-0.8); MONOCYTES % (AUTO) 9.5 % (0.0-13.0); NEUTROPHILS % (AUTO) 70.7 % (42.0-75.0); RED BLOOD COUNT 3.34 X10^6/uL (3.5-5.4); RED CELL DISTRIBUTION WIDTH 19.2 % (11.6-16.5); WHITE BLOOD COUNT 5.6 X10^3/uL (3.6-10.0)
[2022-08-29 05:17] LABS: ALANINE AMINOTRANSFERASE 13 Units/L (12-78); ALKALINE PHOSPHATASE 72 Units/L (46-116); ASPARTATE AMINO TRANSFERASE 24 Units/L (15-37); BLOOD UREA NITROGEN 37 mg/dL (7-18); CALCIUM 8.4 mg/dL (8.5-10.1); CARBON DIOXIDE 30.7 mmol/L (21-32); CHLORIDE 96 mmol/L (98-107); COR CA(FOR HYPOALB) 9.2 mg/dL (8.5-10.1); CREATININE 1.85 mg/dL (0.55-1.02); SODIUM 131 mmol/L (136-145); TOTAL PROTEIN 6.9 g/dL (6.4-8.2); eGFR NON BLACK RACES 29 (>60)
[2022-08-29 05:29] LABS: ANISOCYTOSIS SLIGHT; HYPOCHROMASIA SLIGHT; MICROCYTOSIS SLIGHT; PLATELET MORPHOLOGY COMMENT NORMAL (NORMAL)
[2022-08-29 09:02] LABS: ABG HCO3 35.3 mmol/L (22-26)
[2022-08-29 09:05] LABS: ABG ALLEN TEST POS
[2022-08-29] MEDS: MIRALAX POWDER (1 DOSE 17 G) PO SCH (09:14)
[2022-08-29] MEDS: ALDACTONE TAB 25 MG PO SCH (09:14)
[2022-08-29] MEDS: HEMOCYTE-PLUS PO SCH (09:14)
[2022-08-29] MEDS: LASIX IVP SCH ×2 (09:14→21:59)
[2022-08-29] MEDS: PROTONIX INJ 40 MG VIAL IVP SCH ×2 (09:15→21:58)
[2022-08-29] MEDS: PATIENT'S HOME MEDICATION (Prasugrel 10 mg tablet) PO SCH (09:15)
[2022-08-29] MEDS: CHRONULAC PO SCH (10:19)
[2022-08-29] MEDS: LEVEMIR SC SCH ×2 (11:19→22:10)
[2022-08-29 11:48] LABS: INR 1.05 (0.8-1.3)
--- NOTE | 2022-08-29 13:19 | PCM.PROG ---
Progress Note - Progress Note for Day of Date of Exam: 08/29/22 - Subjective Subjective: She is currently being treated for anemia and CHF exacerbation. She reports dyspnea on exertion. CTAP showed hepatic cirrhosis, MRI pending. CXR consistent with mild CHF and volume overload. Patient's leg edema has improved. Nursing staff reports pt has increased lethargy. Pt did awaken this morning and answered questions appropriately but was more lethargic. She had a CT head without acute findings on Monday. Ammonia level added and Dr. Mathews consulted. Urine Cx: Enterococcus Faecalis, currently on IV atbx therapy. EF 34% currently increased lasix to 20mg iv bid with continued strict I&os - Past Medical Family Social History Past Med/Fam/Surg Hx: No changes since H&P Allergies: Allergies albuterol Allergy (Severe, Verified 08/25/22 20:59) ANAPHALEXIS REACTION almond Allergy (Severe, Verified 08/25/22 21:03) ANAPHALEXIS REACTION ketorolac [From Toradol] Allergy (Severe, Verified 08/25/22 21:01) ANAPHALEXIS REACTION peanut Allergy (Severe, Verified 08/25/22 21:03) ANAPHALEXIS REACTION acetaminophen [From Darvocet-N] Allergy (Verified 08/25/22 21:00) nalbuphine [From Nubain] Allergy (Verified 08/25/22 21:02) RASH propoxyphene [From Darvocet-N] Allergy (Verified 08/25/22 21:02) RASH - Review of Systems ROS: No change since H&P - Vital Signs and I&O's Vital Signs: Temperature 98.3 F Pulse Rate [Right Brachial] 82 Respiratory Rate 18 Blood Pressure [Right Arm] 172/74 Blood Pressure [Left Radial 166/77 Artery] Blood Pressure [Left Arm] 153/77 O2 Sat by Pulse Oximetry 99 Intake and Output: Intake & Output 08/27/22 08/28/22 08/29/22 08/30/22 11:59 11:59 11:59 11:59 Intake Total 660 / 660 960 / 960 1200 / 1200 Output Total 2049 / 2049 300 / 300 1400 / 1400 Balance -1390 / -1390 660 / 660 -200 / -200 - Physical Exam Oriented: Normal Eyes: Normal Ear: Normal Nose: Normal Throat: Normal Respiratory: Generalized, Rhonchi Cardiovascular: Edema (LE edema improved) : Normal Auscultation: Bowel Sounds: Normal Tenderness: Normal Skin: Decreased Turgur Musculoskeletal: Back:Lumbar Psychiatric: Normal Mood Description: Calm Affect: Normal Speech Pattern: Clear, Appropriate - Laboratory and Diagnostics Result Diagrams: 08/29/22 04:33 08/29/22 04:33 Labs: 08/26/22 00:50 Urine,Clean Catch Urine Culture - Final Enterococcus Faecalis Laboratory WBC 5.6 X10^3/uL (3.6-10.0) 08/29/22 04:33 RBC 3.34 X10^6/uL (3.5-5.4) L 08/29/22 04:33 Hgb 8.2 g/dL (12.0-16.0) L 08/29/22 04:33 Hct 25.0 % (36.0-47.0) L 08/29/22 04:33 MCV 74.7 fL (80.0-100.0) L 08/29/22 04:33 MCH 24.6 pg (27.0-34.0) L 08/29/22 04:33 MCHC 32.9 g/dL (33.0-35.0) L 08/29/22 04:33 RDW 19.2 % (11.6-16.5) H 08/29/22 04:33 Plt Count 117 X10^3/uL (150.0-450.0) L 08/29/22 04:33 Plt Count Comment Decreased (ADEQUATE) A 08/29/22 04:33 MPV 8.7 fL (7.4-11.0) 08/29/22 04:33 Neut % (Auto) 70.7 % (42.0-75.0) 08/29/22 04:33 Lymph % (Auto) 15.1 % (21.0-51.0) L 08/29/22 04:33 [place] % (Auto) 9.5 % (0.0-13.0) 08/29/22 04:33 Eos % (Auto) 3.4 % (0.9-2.9) H 08/29/22 04:33 Baso % (Auto) 1.3 % (0.2-1.0) H 08/29/22 04:33 Neut # (Auto) 4.0 x10^3/uL (2.2-4.8) 08/29/22 04:33 Lymph # (Auto) 0.8 X10^3/uL (1.3-2.9) L 08/29/22 04:33 [place] # (Auto) 0.5 x10^3/uL (0.3-0.8) 08/29/22 04:33 Eos # (Auto) 0.2 x10^3/uL (0.0-0.2) 08/29/22 04:33 Baso # (Auto) 0.1 X10^3/uL (0.0-0.1) 08/29/22 04:33 Absolute Nucleated RBC 0.1 /100WBC 08/29/22 04:33 Plt Morphology Comment Normal (NORMAL) 08/29/22 04:33 RBC Morphology Abnormal (NORMAL) A 08/29/22 04:33 Hypochromasia Slight A 08/29/22 04:33 Anisocytosis Slight A 08/29/22 04:33 Microcytosis Slight A 08/29/22 04:33 PT 14.2 SECONDS (11.8-14.3) 08/29/22 08:30 INR Target Range - 08/29/22 08:30 INR 1.05 (0.8-1.3) 08/29/22 08:30 Sample Site Rrad 08/29/22 08:32 ABG pH 7.370 (7.35-7.45) 08/29/22 08:32 ABG pCO2 61.0 mmHg (35.0-45.0) H* 08/29/22 08:32 ABG pO2 50.0 mmHg (80.0-100.0) L 08/29/22 08:32 ABG HCO3 35.3 mmol/L (22-26) H* 08/29/22 08:32 ABG O2 Saturation 84.0 % (90-100) L* 08/29/22 08:32 ABG Base Excess 8.0 mmol/L (-2.0-2.0) H 08/29/22 08:32 Ayo Test Pos 08/29/22 08:32 A-a Gradient 23.0 mmHg 08/29/22 08:32 FiO2 21.0 08/29/22 08:32 Blood Gas Comments Pt virgie well elj 08/29/22 08:32 Sodium 131 mmol/L (136-145) L 08/29/22 04:33 Corrected Sodium TNP 08/29/22 04:33 Potassium 4.7 mmol/L (3.5-5.1) 08/29/22 04:33 Chloride 96 mmol/L (98-107) L 08/29/22 04:33 Carbon Dioxide 30.7 mmol/L (21-32) 08/29/22 04:33 BUN 37 mg/dL (7-18) H 08/29/22 04:33 Creatinine 1.85 mg/dL (0.55-1.02) H 08/29/22 04:33 Est GFR (MDRD) Af Amer 35 (>60) L 08/29/22 04:33 Est GFR (MDRD) Non-Af 29 (>60) L 08/29/22 04:33 Glucose 98 mg/dL (65-99) 08/29/22 04:33 POC Glucose (mg/dL) 77 mg/dL (65-99) 08/29/22 11:12 Calcium 8.4 mg/dL (8.5-10.1) L 08/29/22 04:33 Corrected Calcium 9.2 mg/dL (8.5-10.1) 08/29/22 04:33 Magnesium 2.0 mg/dL (2.0-2.9) 08/28/22 05:21 Iron 16 ug/dL (50-175) L 08/25/22 19:08 Ferritin 49 ng/mL (8-252) 08/25/22 19:08 Total Bilirubin 0.60 mg/dL (0.2-1.0) 08/29/22 04:33 AST 24 Units/L (15-37) 08/29/22 04:33 ALT 13 Units/L (12-78) 08/29/22 04:33 Alkaline Phosphatase 72 Units/L (46-116) 08/29/22 04:33 Ammonia 44 umol/L (11-32) H 08/29/22 08:30 Creatine Kinase 177 Units/L (26-192) 08/25/22 19:08 Troponin I High Sens 26.8 ng/L (4.0-60.0) 08/26/22 06:04 B-Natriuretic Peptide 697 pg/mL (0-79) H* 08/25/22 19:08 Total Protein 6.9 g/dL (6.4-8.2) 08/29/22 04:33 Albumin 3.0 g/dL (3.4-5.0) L 08/29/22 04:33 Globulin 3.9 g/dL (2.5-4.5) 08/29/22 04:33 Albumin/Globulin Ratio 0.8 Ratio (1.1-2.1) L 08/29/22 04:33 Vitamin B12 472 pg/mL (193-986) 08/25/22 19:08 Folate 13.5 ng/mL (>8.6) 08/25/22 19:08 Free T4 0.95 ng/dL (0.76-1.46) 08/25/22 19:08 TSH 3rd Generation 1.737 uIU/mL (0.358-3.74) 08/25/22 19:08 Specimen Type Catherized urine 08/26/22 00:50 Urine Color Yellow (YELLOW) 08/26/22 00:50 Urine Appearance Cloudy (CLEAR) 08/26/22 00:50 Urine pH 6.0 (5.0 - 8.0) 08/26/22 00:50 Ur Specific [place] 1.015 (1.000-1.030) 08/26/22 00:50 Urine Protein 3+ (NEGATIVE) 08/26/22 00:50 Urine Glucose (UA) Negative (NEGATIVE) 08/26/22 00:50 Urine Ketones Negative (NEGATIVE) 08/26/22 00:50 Urine Blood 5+ (NEGATIVE) 08/26/22 00:50 Urine Nitrite Negative (NEGATIVE) 08/26/22 00:50 Urine Bilirubin Negative (NEGATIVE) 08/26/22 00:50 Urine Urobilinogen Normal (NORMAL) 08/26/22 00:50 Ur Leukocyte Esterase 3+ (NEGATIVE) 08/26/22 00:50 Urine RBC Tntc /HPF (0-3) A 08/26/22 00:50 Urine WBC 5-10 /HPF (0-5) A 08/26/22 00:50 Ur Squamous Epith Cells Few /HPF (NEGATIVE) 08/26/22 00:50 Urine Bacteria Trace /HPF (NEGATIVE) 08/26/22 00:50 Ur Culture Indicated? Yes/culture set up 08/26/22 00:50 Stl Occult Blood (IFOB) Negative (NEGATIVE) 08/27/22 20:50 Blood Type AB POSITIVE 08/25/22 20:40 Antibody Screen Negative 08/25/22 20:40 Crossmatch See Detail 08/25/22 20:40 - Plan (1) Cirrhosis Status: Acute (2) Anemia Status: Acute Plan: ANEMIA PANEL AND OCCULT STOOL. TYPE & SCREEN AND TRANSFUSE PRBC WITH STRICT I&OS. BP CONTROL, HODGE PLACEMENT FOR I&OS. PPI THERAPY, BS CONTROL (3) CHF (congestive heart failure) Status: Acute (4) Renal disease Status: Acute (5) CAD (coronary artery disease) Status: Acute (6) Diabetes Status: Acute (7) Urinary tract infection Status: Acute
[2022-08-29] MEDS: INDERAL TAB 10 MG PO SCH ×2 (13:59→21:59)
--- NOTE | 2022-08-29 16:54 | MRI ---
ABDOMEN W/O CONClinical indication: CirrhosisProcedure: Multiplanar multi sequence MRI of the abdomen were obtained without the administration of intravenous contrast according to standard departmental protocol.Comparisons:August 26, 2022Findings: Examination markedly compromised by patient motion.Iron deposition liver and spleen. Small volume ascites . Cirrhotic morphology liver. Spleen measures 15 cm in craniocaudal dimension. There is a region T2 bright signal in the central liver on series 801, image 7 2.2 cm. Gallbladder absent. No filling defects within the common bile duct. No ductal dilatation pancreatic atrophy. Adrenal glands not well seen. Kidneys demonstrate normal cortical medullary differentiation. No hydronephrosis. No suspicious lymph nodes.Impression:1.Cirrhosis of the liver and evidence of portal hypertension. There is a region T2 abnormal signal central liver. It should be noted that hepatocellular carcinoma cannot be excluded in the absence of intravenous contrast.Electronically signed by: DORIS SILVA (Aug 29, 2022 16:54:01)
[2022-08-29] MEDS: SNACK - Diabetic Appropriate PO SCH (20:11)
[2022-08-29] MEDS: RESTORIL CAP 15 MG PO PRN (21:59)
[2022-08-29] MEDS: COLACE CAP 100 MG PO SCH (22:00)
[2022-08-29] MEDS: ZOFRAN INJ 4 MG VIAL IVP PRN (22:23)
[2022-08-30] MEDS: NS IV SCH ×2 (00:44→11:17)
[2022-08-30] MEDS: AMPICILLIN IV SCH ×2 (00:44→11:17)
[2022-08-30 06:29] LABS: AMMONIA 43 umol/L (11-32)
[2022-08-30 06:33] LABS: BASOPHILS # (AUTO) 0.1 X10^3/uL (0.0-0.1); BASOPHILS % (AUTO) 1.5 % (0.2-1.0); EOSINOPHILS # (AUTO) 0.2 x10^3/uL (0.0-0.2); EOSINOPHILS % (AUTO) 3.4 % (0.9-2.9); HEMATOCRIT 28.7 % (36.0-47.0); HEMOGLOBIN 9.2 g/dL (12.0-16.0); LYMPHOCYTES # (AUTO) 0.6 X10^3/uL (1.3-2.9); LYMPHOCYTES % (AUTO) 8.5 % (21.0-51.0); MEAN CORPUSCULAR HEMOGLOBIN 24.4 pg (27.0-34.0); MEAN CORPUSCULAR HGB CONC 32.1 g/dL (33.0-35.0); MEAN CORPUSCULAR VOLUME 76.1 fL (80.0-100.0); MONOCYTES # (AUTO) 0.5 x10^3/uL (0.3-0.8); NEUTROPHILS # (AUTO) 5.4 x10^3/uL (2.2-4.8); NEUTROPHILS % (AUTO) 78.6 % (42.0-75.0); RED BLOOD COUNT 3.77 X10^6/uL (3.5-5.4); RED CELL DISTRIBUTION WIDTH 19.5 % (11.6-16.5); WHITE BLOOD COUNT 6.9 X10^3/uL (3.6-10.0)
[2022-08-30 06:48] LABS: ALANINE AMINOTRANSFERASE 15 Units/L (12-78); ALBUMIN 3.4 g/dL (3.4-5.0); ALKALINE PHOSPHATASE 87 Units/L (46-116); ASPARTATE AMINO TRANSFERASE 31 Units/L (15-37); BLOOD UREA NITROGEN 33 mg/dL (7-18); CALCIUM 8.8 mg/dL (8.5-10.1); CARBON DIOXIDE 30.9 mmol/L (21-32); CHLORIDE 95 mmol/L (98-107); COR NA(FOR HYPERGLY) 133 mmol/L (136-145); CREATININE 1.69 mg/dL (0.55-1.02); SODIUM 131 mmol/L (136-145); TOTAL PROTEIN 7.6 g/dL (6.4-8.2); eGFR NON BLACK RACES 32 (>60)
[2022-08-30] MEDS: LASIX IVP SCH ×2 (08:43→21:04)
[2022-08-30] MEDS: MIRALAX POWDER (1 DOSE 17 G) PO SCH (08:44)
[2022-08-30] MEDS: CHRONULAC PO SCH (08:44)
[2022-08-30] MEDS: INDERAL TAB 10 MG PO SCH ×2 (08:44→21:05)
[2022-08-30] MEDS: HEMOCYTE-PLUS PO SCH (08:44)
[2022-08-30] MEDS: PROTONIX INJ 40 MG VIAL IVP SCH ×2 (08:44→21:04)
[2022-08-30] MEDS: ALDACTONE TAB 25 MG PO SCH (08:44)
[2022-08-30] MEDS: PATIENT'S HOME MEDICATION (Prasugrel 10 mg tablet) PO SCH (08:44)
[2022-08-30 10:59] LABS: INR 1.34 (0.8-1.3)
[2022-08-30] MEDS: LEVEMIR SC SCH ×2 (12:00→21:06)
[2022-08-30 12:31] LABS: IRON 42 ug/dL (50-175)
[2022-08-30] MEDS: ZOFRAN INJ 4 MG VIAL IVP PRN ×2 (15:38→21:03)
[2022-08-30] MEDS: ROBITUSSIN DM PO PRN (15:38)
--- NOTE | 2022-08-30 18:29 | PCM.PROG ---
Progress Note - Progress Note for Day of Date of Exam: 08/30/22 - Subjective Subjective: She is currently being treated for anemia and CHF exacerbation. She reports dyspnea on exertion. CTAP showed hepatic cirrhosis, MRI pending. CXR consistent with mild CHF and volume overload. Patient's leg edema has improved. Nursing staff reports pt has increased lethargy. Pt did awaken this morning and answered questions appropriately but was more lethargic. She had a CT head without acute findings on Monday. Ammonia level added and Dr. Mathews consulted. Urine Cx: Enterococcus Faecalis, currently on IV atbx therapy. EF 34% currently increased lasix to 20mg iv bid with continued strict I&os - Past Medical Family Social History Past Med/Fam/Surg Hx: No changes since H&P Allergies: Allergies albuterol Allergy (Severe, Verified 08/25/22 20:59) ANAPHALEXIS REACTION almond Allergy (Severe, Verified 08/25/22 21:03) ANAPHALEXIS REACTION ketorolac [From Toradol] Allergy (Severe, Verified 08/25/22 21:01) ANAPHALEXIS REACTION peanut Allergy (Severe, Verified 08/25/22 21:03) ANAPHALEXIS REACTION acetaminophen [From Darvocet-N] Allergy (Verified 08/25/22 21:00) nalbuphine [From Nubain] Allergy (Verified 08/25/22 21:02) RASH propoxyphene [From Darvocet-N] Allergy (Verified 08/25/22 21:02) RASH - Review of Systems ROS: No change since H&P - Vital Signs and I&O's Vital Signs: Temperature 97.8 F Pulse Rate [Right Brachial] 68 Respiratory Rate 22 Blood Pressure [Right Arm] 173/73 Blood Pressure [Left Radial 166/77 Artery] Blood Pressure [Left Arm] 139/64 O2 Sat by Pulse Oximetry 99 Intake and Output: Intake & Output 08/28/22 08/29/22 08/30/22 08/31/22 11:59 11:59 11:59 11:59 Intake Total 960 / 960 1200 / 1200 1337 / 1337 360 / 360 Output Total 300 / 300 1400 / 1400 2200 / 2200 400 / 400 Balance 660 / 660 -200 / -200 -863 / -863 -40 / -40 - Physical Exam Oriented: Normal, Time, Person Eyes: Normal Ear: Normal Nose: Normal Throat: Normal Respiratory: Generalized, Diminished, Rhonchi Cardiovascular: Normal Auscultation: Bowel Sounds: Normal Tenderness: Normal Skin: Decreased Turgur Musculoskeletal: Normal, Back:Lumbar Psychiatric: Normal Mood Description: Calm Affect: Normal Speech Pattern: Clear, Appropriate, Delayed - Laboratory and Diagnostics Result Diagrams: 08/30/22 05:30 08/30/22 05:30 Labs: 08/26/22 00:50 Urine,Clean Catch Urine Culture - Final Enterococcus Faecalis Laboratory WBC 6.9 X10^3/uL (3.6-10.0) 08/30/22 05:30 RBC 3.77 X10^6/uL (3.5-5.4) 08/30/22 05:30 Hgb 9.2 g/dL (12.0-16.0) L 08/30/22 05:30 Hct 28.7 % (36.0-47.0) L 08/30/22 05:30 MCV 76.1 fL (80.0-100.0) L 08/30/22 05:30 MCH 24.4 pg (27.0-34.0) L 08/30/22 05:30 MCHC 32.1 g/dL (33.0-35.0) L 08/30/22 05:30 RDW 19.5 % (11.6-16.5) H 08/30/22 05:30 Plt Count 103 X10^3/uL (150.0-450.0) L 08/30/22 05:30 Plt Count Comment Decreased (ADEQUATE) A 08/29/22 04:33 MPV 9.0 fL (7.4-11.0) 08/30/22 05:30 Neut % (Auto) 78.6 % (42.0-75.0) H 08/30/22 05:30 Lymph % (Auto) 8.5 % (21.0-51.0) L 08/30/22 05:30 [place] % (Auto) 8.0 % (0.0-13.0) 08/30/22 05:30 Eos % (Auto) 3.4 % (0.9-2.9) H 08/30/22 05:30 Baso % (Auto) 1.5 % (0.2-1.0) H 08/30/22 05:30 Neut # (Auto) 5.4 x10^3/uL (2.2-4.8) H 08/30/22 05:30 Lymph # (Auto) 0.6 X10^3/uL (1.3-2.9) L 08/30/22 05:30 [place] # (Auto) 0.5 x10^3/uL (0.3-0.8) 08/30/22 05:30 Eos # (Auto) 0.2 x10^3/uL (0.0-0.2) 08/30/22 05:30 Baso # (Auto) 0.1 X10^3/uL (0.0-0.1) 08/30/22 05:30 Absolute Nucleated RBC 0.1 /100WBC 08/30/22 05:30 Plt Morphology Comment Normal (NORMAL) 08/29/22 04:33 RBC Morphology Abnormal (NORMAL) A 08/29/22 04:33 Hypochromasia Slight A 08/29/22 04:33 Anisocytosis Slight A 08/29/22 04:33 Microcytosis Slight A 08/29/22 04:33 PT 14.0 SECONDS (11.8-14.3) 08/30/22 05:30 INR Target Range - 08/30/22 05:30 INR 1.34 (0.8-1.3) H 08/30/22 05:30 Sample Site Rrad 08/29/22 08:32 ABG pH 7.370 (7.35-7.45) 08/29/22 08:32 ABG pCO2 61.0 mmHg (35.0-45.0) H* 08/29/22 08:32 ABG pO2 50.0 mmHg (80.0-100.0) L 08/29/22 08:32 ABG HCO3 35.3 mmol/L (22-26) H* 08/29/22 08:32 ABG O2 Saturation 84.0 % (90-100) L* 08/29/22 08:32 ABG Base Excess 8.0 mmol/L (-2.0-2.0) H 08/29/22 08:32 Ayo Test Pos 08/29/22 08:32 A-a Gradient 23.0 mmHg 08/29/22 08:32 FiO2 21.0 08/29/22 08:32 Blood Gas Comments Pt virgie well elj 08/29/22 08:32 Sodium 131 mmol/L (136-145) L 08/30/22 05:30 Corrected Sodium 133 mmol/L (136-145) L 08/30/22 05:30 Potassium 4.9 mmol/L (3.5-5.1) 08/30/22 05:30 Chloride 95 mmol/L (98-107) L 08/30/22 05:30 Carbon Dioxide 30.9 mmol/L (21-32) 08/30/22 05:30 BUN 33 mg/dL (7-18) H 08/30/22 05:30 Creatinine 1.69 mg/dL (0.55-1.02) H 08/30/22 05:30 Est GFR (MDRD) Af Amer 39 (>60) L 08/30/22 05:30 Est GFR (MDRD) Non-Af 32 (>60) L 08/30/22 05:30 Glucose 185 mg/dL (65-99) H 08/30/22 05:30 POC Glucose (mg/dL) 278 mg/dL (65-99) H 08/30/22 16:45 Calcium 8.8 mg/dL (8.5-10.1) 08/30/22 05:30 Corrected Calcium TNP 08/30/22 05:30 Magnesium 2.0 mg/dL (2.0-2.9) 08/28/22 05:21 Iron 42 ug/dL (50-175) L 08/30/22 11:44 Transferrin 309 mg/dL (202-364) 08/30/22 11:44 Ferritin 433 ng/mL (8-252) H 08/30/22 11:44 Total Bilirubin 0.50 mg/dL (0.2-1.0) 08/30/22 05:30 AST 31 Units/L (15-37) 08/30/22 05:30 ALT 15 Units/L (12-78) 08/30/22 05:30 Alkaline Phosphatase 87 Units/L (46-116) 08/30/22 05:30 Ammonia 43 umol/L (11-32) H 08/30/22 05:30 Creatine Kinase 177 Units/L (26-192) 08/25/22 19:08 Troponin I High Sens 26.8 ng/L (4.0-60.0) 08/26/22 06:04 B-Natriuretic Peptide 697 pg/mL (0-79) H* 08/25/22 19:08 Total Protein 7.6 g/dL (6.4-8.2) 08/30/22 05:30 Albumin 3.4 g/dL (3.4-5.0) 08/30/22 05:30 Globulin 4.2 g/dL (2.5-4.5) 08/30/22 05:30 Albumin/Globulin Ratio 0.8 Ratio (1.1-2.1) L 08/30/22 05:30 Vitamin B12 472 pg/mL (193-986) 08/25/22 19:08 Folate 13.5 ng/mL (>8.6) 08/25/22 19:08 Free T4 0.95 ng/dL (0.76-1.46) 08/25/22 19:08 TSH 3rd Generation 1.737 uIU/mL (0.358-3.74) 08/25/22 19:08 Specimen Type Catherized urine 08/26/22 00:50 Urine Color Yellow (YELLOW) 08/26/22 00:50 Urine Appearance Cloudy (CLEAR) 08/26/22 00:50 Urine pH 6.0 (5.0 - 8.0) 08/26/22 00:50 Ur Specific [place] 1.015 (1.000-1.030) 08/26/22 00:50 Urine Protein 3+ (NEGATIVE) 08/26/22 00:50 Urine Glucose (UA) Negative (NEGATIVE) 08/26/22 00:50 Urine Ketones Negative (NEGATIVE) 08/26/22 00:50 Urine Blood 5+ (NEGATIVE) 08/26/22 00:50 Urine Nitrite Negative (NEGATIVE) 08/26/22 00:50 Urine Bilirubin Negative (NEGATIVE) 08/26/22 00:50 Urine Urobilinogen Normal (NORMAL) 08/26/22 00:50 Ur Leukocyte Esterase 3+ (NEGATIVE) 08/26/22 00:50 Urine RBC Tntc /HPF (0-3) A 08/26/22 00:50 Urine WBC 5-10 /HPF (0-5) A 08/26/22 00:50 Ur Squamous Epith Cells Few /HPF (NEGATIVE) 08/26/22 00:50 Urine Bacteria Trace /HPF (NEGATIVE) 08/26/22 00:50 Ur Culture Indicated? Yes/culture set up 08/26/22 00:50 Stl Occult Blood (IFOB) Negative (NEGATIVE) 08/27/22 20:50 Blood Type AB POSITIVE 08/25/22 20:40 Antibody Screen Negative 08/25/22 20:40 Crossmatch See Detail 08/25/22 20:40 - Plan (1) Cirrhosis Status: Acute Plan: LACTULOSE AND XIFAXIN. BP CONTROL, BLEEDING PRECAUTIONS. IRFAN CONSULT ORDERED, AM CBC CMP. STRICT I&OS (2) Anemia Status: Acute Plan: ANEMIA PANEL AND OCCULT STOOL. TYPE & SCREEN AND TRANSFUSE PRBC WITH STRICT I&OS. BP CONTROL, HODGE PLACEMENT FOR I&OS. PPI THERAPY, BS CONTROL (3) CHF (congestive heart failure) Status: Acute (4) Renal disease Status: Acute (5) CAD (coronary artery disease) Status: Acute (6) Diabetes Status: Acute (7) Urinary tract infection Status: Acute
[2022-08-30] MEDS: COLACE CAP 100 MG PO SCH (21:04)
[2022-08-30] MEDS: RESTORIL CAP 15 MG PO PRN (21:05)
[2022-08-30] MEDS: SNACK - Diabetic Appropriate PO SCH (21:05)
[2022-08-31] MEDS: NS IV SCH ×2 (00:39→13:25)
[2022-08-31] MEDS: AMPICILLIN IV SCH ×2 (00:39→13:25)
[2022-08-31 05:38] LABS: BASOPHILS % (AUTO) 0.4 % (0.2-1.0); EOSINOPHILS # (AUTO) 0.2 x10^3/uL (0.0-0.2); EOSINOPHILS % (AUTO) 3.4 % (0.9-2.9); HEMATOCRIT 26.9 % (36.0-47.0); HEMOGLOBIN 8.8 g/dL (12.0-16.0); LYMPHOCYTES # (AUTO) 0.7 X10^3/uL (1.3-2.9); LYMPHOCYTES % (AUTO) 11.8 % (21.0-51.0); MEAN CORPUSCULAR HEMOGLOBIN 24.9 pg (27.0-34.0); MEAN CORPUSCULAR HGB CONC 32.6 g/dL (33.0-35.0); MEAN CORPUSCULAR VOLUME 76.4 fL (80.0-100.0); MEAN PLATELET VOLUME 8.6 fL (7.4-11.0); MONOCYTES # (AUTO) 0.4 x10^3/uL (0.3-0.8); MONOCYTES % (AUTO) 7.4 % (0.0-13.0); NEUTROPHILS # (AUTO) 4.6 x10^3/uL (2.2-4.8); RED BLOOD COUNT 3.51 X10^6/uL (3.5-5.4); RED CELL DISTRIBUTION WIDTH 19.8 % (11.6-16.5); WHITE BLOOD COUNT 5.9 X10^3/uL (3.6-10.0)
[2022-08-31 05:49] LABS: ALBUMIN 3.2 g/dL (3.4-5.0); CALCIUM 8.7 mg/dL (8.5-10.1); CARBON DIOXIDE 34.6 mmol/L (21-32); COR CA(FOR HYPOALB) 9.3 mg/dL (8.5-10.1); CREATININE 1.76 mg/dL (0.55-1.02); TOTAL PROTEIN 7.3 g/dL (6.4-8.2)
[2022-08-31 06:05] LABS: HEPATITIS B SURFACE ANTIGEN Negative (Negative)
[2022-08-31] MEDS ORDERED: XIFAXAN PO SCH (09:00)
--- NOTE | 2022-08-31 09:04 | RAD ---
HISTORYCHFSTUDYCHEST, 1 [id number]/26/2023.TECHNIQUEPA or AP view of the chestFINDINGSPatient is significantly rotated. The cardiac silhouette is stably enlarged. Mediastinal contours appear stable. Status post median sternotomy. There are mild bibasilar patchy opacities. No definite pneumothorax. Soft tissue attenuation limits evaluation. Blunted right costophrenic sulcus.IMPRESSIONMild bibasilar patchy opacities may represent atelectasis or infiltrate. Blunted right costophrenic sulcus can be seen with small pleural effusion or pleuro-parynchemal scarring.Electronically signed by: Ryan Lara (Aug 31, 2022 09:03:14)
[2022-08-31] MEDS: PROTONIX INJ 40 MG VIAL IVP SCH (10:45)
[2022-08-31] MEDS: LASIX IVP SCH (10:45)
[2022-08-31] MEDS: MIRALAX POWDER (1 DOSE 17 G) PO SCH (10:46)
[2022-08-31] MEDS: HEMOCYTE-PLUS PO SCH (10:46)
[2022-08-31] MEDS: INDERAL TAB 10 MG PO SCH (10:46)
[2022-08-31] MEDS: ALDACTONE TAB 25 MG PO SCH (10:46)
[2022-08-31] MEDS: CHRONULAC PO SCH (10:47)
[2022-08-31] MEDS: LEVEMIR SC SCH (11:04)
[2022-08-31 12:53] VITALS: BP 153/70
[2022-08-31] MEDS: ZOFRAN INJ 4 MG VIAL IVP PRN (13:25)
--- NOTE | 2022-08-31 16:55 | DR.CONSULT ---
Consult - Consultation for Day of: Date: 08/30/22 (GI) - Chief Complaint Chief Complaint: Patient is a 67 y/o who is referred for liver cirrhosis. Patient has complaints of dyspepsia and constipation. Denies dysphagia, abdominal pain, N/V, diarrhea, melena, and hematochezia. Patient reports last EGD was done 6-12 months ago, in [place]. Last colonoscopy was done 1.5 years ago, also in [place]. Patient denies history of colon polyps. Denies ETOH use or any history of liver disease. Abdomen MRI shows cirrhosis of the liver and evidence of portal hypertension; there is a region T2 abnormal signal central liver, it should be noted that hepatocellular carcinoma cannot be excluded in the absence of intravenous contrast. PT IS [id number], DIRECT ADMIT FOR EVALUATION AND TREATMENT OF SYMPTOMATIC ANEMIA OF UNKNOWN CAUSE, INCREASED LOWER LEG SWELLING. PT HAS PMH OF STAGE 3 KIDNEY DISEASE, UNDER THE CARE OF DR CASTILLO, CAD, WITH BYPASS IN 2008 AND MULTIPLE STENT PLACEMENT UNDER THE CARE OF DR TURNER. - Past Medical History Past Medical History: Anxiety, Arthritis, CHF, Coronary Artery Disease, Diabetes, Hypertension, Renal Disease - Past Surgical History Surgical History: Angioplasty/Stents, Appendectomy, Cholecystectomy, Hysterectomy, Tonsillectomy - Family History Family Medical History: Diabetes Mellitus, [place], Hypertension - Social History Type of Tobacco Use: None Alcohol Use: None Drug Use: None - Medications Home Medications: albuterol Allergy (Severe, Verified 08/25/22 20:59) ANAPHALEXIS REACTION almond Allergy (Severe, Verified 08/25/22 21:03) ANAPHALEXIS REACTION ketorolac [From Toradol] Allergy (Severe, Verified 08/25/22 21:01) ANAPHALEXIS REACTION peanut Allergy (Severe, Verified 08/25/22 21:03) ANAPHALEXIS REACTION acetaminophen [From Darvocet-N] Allergy (Verified 08/25/22 21:00) nalbuphine [From Nubain] Allergy (Verified 08/25/22 21:02) RASH propoxyphene [From Darvocet-N] Allergy (Verified 08/25/22 21:02) RASH CONTINUE taking the following medications bumetanide 1 mg tablet 1 tab PO BID 08/25/22 [History] ergocalciferol (vitamin D2) 50 mcg (2,000 unit) capsule 2,000 mcg PO WEEKLY 08/25/22 [History] esomeprazole magnesium 40 mg capsule,delayed release 40 mg PO BID 08/25/22 [History] gabapentin 600 mg tablet 600 tab PO BID 08/25/22 [History] insulin detemir U-100 100 unit/mL subcutaneous solution (Levemir U-100 Insulin) 70 ml subcut DAILY 08/25/22 [History] losartan 100 mg tablet 1 tab PO QDAY 08/25/22 [History] metformin 500 mg tablet 1 tab PO QDAY 08/25/22 [History] prasugrel 10 mg tablet 1 tab PO QDAY 08/25/22 [History] promethazine 25 mg tablet 1 tab PO BID PRN 08/25/22 [History] tamsulosin 0.4 mg capsule 1 cap PO QDAY 08/25/22 [History] insulin detemir U-100 100 unit/mL subcutaneous solution (Levemir U-100 Insulin) 30 unit subcut HS 08/28/22 [History] - Review of Systems Constitutional: Weakness. denies: No Symptoms Reported, See HPI, Fever, Chills, Sweats, Malaise, Other Eyes: denies: No Symptoms Reported, See HPI, Pain, Vision Change, Conjunctivae Inflammation, Eyelid Inflammation, Redness, Other ENT: denies: No Symptoms Reported, See HPI, Ear Pain, Ear Discharge, Nose Pain, Nose Discharge, Nose Congestion, Mouth Pain, Mouth Swelling, Throat Pain, Throat Swelling, Other Respiratory: Shortness of Breath. denies: No Symptoms Reported, See HPI, Cough, Dry, Hemoptysis, SOB with Excertion, Pleuritic Pain, Sputum, Wheezing, Other Cardiovascular: See HPI. denies: No Symptoms Reported, Chest Pain, Palpitations, Orthopnea, Paroxysmal Noc. Dyspnea, Edema, Light Headedness, Other Gastrointestinal: See HPI, Constipation, Other (GERD). denies: No Symptoms Reported, Nausea, Vomiting, Abdominal Pain, Diarrhea, Melena, Hematochezia Genitourinary: denies: No Symptoms Reported, See HPI, Dysuria, Frequency, Incontinence, Hematuria, Retention, Other Musculoskeletal: No Symptoms Reported. denies: See HPI, Shoulder Pain, Arm Pain, Back Pain, Hand Pain, Leg Pain, Foot Pain, Neck Pain, Other Skin: No Symptoms Reported. denies: See HPI, Rash, Lesions, Jaundice, Bruising, Wound, Ecchymosis, Other Neurological: No Symptoms Reported. denies: See HPI, Weakness, Numbness, Incoordination, Change in Speech, Confusion, Seizures, Other - Physical Exam Vital Signs: Temperature 97.3 F Pulse Rate [Right Brachial] 81 Respiratory Rate 22 Blood Pressure [Right Arm] 171/92 Blood Pressure [Left Radial 166/77 Artery] Blood Pressure [Left Arm] 139/64 O2 Sat by Pulse Oximetry 98 Oriented: Normal. negative: Time, Person, Place, Not Oriented, Unable to test, Other Eyes: negative: Normal, Blurred Vision, Diplopia, Discharge, Pain, Redness, Photophobia, Other Ear: negative: Normal, Right, Left, Swelling, Ecchymosis, Hemotypanum, Abrasion, Laceration Nose: negative: Normal, Injected, Discharge, Blood, Other Throat: negative: Normal, Tonsillar Hypertrophy, Red, Exudate, Dry, Other Respiratory: Clear Throughout (Diminished to lower lobes bilaterally). negative : Diminished Throughout, Rhonchi Throughout, Rales Throughout, Wheezes Throughout, RUL Clear, RML Clear, RLL Clear, KWADWO Clear, LML Clear, LLL Clear, RUL Diminished, RML Diminished, RLL Diminished, KWADWO Diminished, LML Diminished, LLL Diminished, RUL Absent, RML Absent, RLL Absent, KWADWO Absent, LML Absent, LLL Absent, RUL Rhonchi, RML Rhonchi, RLL Rhonchi, KWADWO Rhonchi, LML Rhonchi, LLL Rhonchi, RUL Insp. Wheeze, RML Insp. Wheeze, RLL Insp. Wheeze, KWADWO Insp.Wheeze, LML Insp.Wheeze, LLL Insp.Wheeze, RUL Exp. Wheeze, RML Exp. Wheeze, RLL Exp. Wheeze, KWADWO Exp. Wheeze, LML Exp. Wheeze, LLL Exp. Wheeze, RUL Rales, RML Rales, RLL Rales, KWADWO Rales, LML Rales, LLL Rales, RUL Rub, RML Rub, RLL Rub, KWADWO Rub, LML Rub, LLL Rub, RUL Squeak, RML Squeak, RLL Squeak, KWADWO Squeak, LML Squeak, LLL Squeak Cardiovascular: Normal. negative: Tachycardia, Bradycardia, Irregular, S3, S4, Systolic, Diastolic, Murmur, Edema, Other : negative: Normal, Dysuria, Hematuria, Frequency, Discharge, Testicular Pain, Bleeding, , Other Auscultation: Bowel Sounds: Normal. negative: Bruit, Absent, Increased, Decreased, High Pitched, Other Palpation: negative: Normal, Spleen Enlarged, Liver Enlarged, Mass Pulsatile, Other Tenderness: Normal. negative: Diffuse, RUQ, RLQ, LUQ, LLQ, Epigastric, Periumbilical, Suprapubic, Mild, Moderate, Severe, Rebound, Guarding, Rigidity, Other Skin: Normal. negative: Decreased Turgur, Rash, Papular, Macular, Maculopapular, Vesicular, Pustular, Petechial, Red, Tender, Hot, Diaphoresis, Wound, Bruising, Ecchymosis, Other Musculoskeletal: Normal. negative: Right, Left, Shoulder, Clavicle, Arm, Elbow, Forearm, Wrist, Hand, Hip, Thigh, Knee, Leg, Ankle, Foot, Back:Thoracic, Back:Lumbar, Back:Midline, Back:Paraspinous, Pelvis, Swelling, Tender, Deformity, Pulse Deficit, Motor Deficit, Sensory Deficit, Instability, Crepitance Psychiatric: Normal. negative: Anxiety, Depression, Agitation, Other Mood Description: Calm. negative: Angry, Apathetic, Depressed, Fearful, Flat, Happy, Hostile, Sad, Suspicious, Withdrawn, Anxious, Appropriate, Labile Affect: Normal. negative: Angry, Anxious, Depressed, Flat, Hysterical, Quiet, Violent Speech Pattern: Clear, Appropriate. negative: Unclear, Inappropriate, Delayed, Slurred, Excessive, Aphasic, Artificially Ventilated, Trach(not ventilated) - Plan Plan: Assessment. 1. Liver cirrhosis, unknown etiology. 2. Hepatic lesion. 3. Anemia. Plan: Serologic liver workup, monitor LFTs. Check AFP level. Monitor Hgb, transfuse as needed. Monitor ammonia level. Continue Protonix, Lactulose. Patient does not want to proceed with EGD at this time. If any evidence of GI bleeding, will discuss endoscopic workup again with patient. Plan D/W Dr. Scruggs - Allergies Allergies/Adverse Reactions: Allergies Allergy/AdvReac Type Severity Reaction Status Date / Time albuterol Allergy Severe ANAPHALEXIS Verified 08/25/22 20:59 REACTION almond Allergy Severe ANAPHALEXIS Verified 08/25/22 21:03 REACTION ketorolac [From Toradol] Allergy Severe ANAPHALEXIS Verified 08/25/22 21:01 REACTION peanut Allergy Severe ANAPHALEXIS Verified 08/25/22 21:03 REACTION acetaminophen Allergy Verified 08/25/22 21:00 [From Darvocet-N] nalbuphine [From Nubain] Allergy RASH Verified 08/25/22 21:02 propoxyphene Allergy RASH Verified 08/25/22 21:02 [From Darvocet-N]
[2022-09-02 09:18] LABS: ANTI-NUCLEAR ANTIBODY TEST None Detected (None Detected)
== END 2022-08-31 03:30 | disposition home health service (06) | DRG 812 ==
LOC: MED/SURG → OBSVTOIN 15:37
PROVIDERS: ADMIT Internal Medicine; ATTEND Internal Medicine
DX: B96.29 Other Escherichia coli [E. coli] as the cause of diseases classified elsewhere; I42.9 Cardiomyopathy, unspecified; D64.89 Other specified anemias; D58.2 Other hemoglobinopathies; N28.9 Disorder of kidney and ureter, unspecified; K59.09 Other constipation; I25.10 Atherosclerotic heart disease of native coronary artery without angina pectoris; R79.1 Abnormal coagulation profile; R41.82 Altered mental status, unspecified; N39.0 Urinary tract infection, site not specified; E11.65 Type 2 diabetes mellitus with hyperglycemia; I50.9 Heart failure, unspecified; R26.89 Other abnormalities of gait and mobility; K74.60 Unspecified cirrhosis of liver; R10.13 Epigastric pain